=== PATIENT | male | born 1970 | race Caucasian/White ===

== ENCOUNTER 2016-11-30 21:38 | Emergency (ER) | payer OTHER ==
[~2016-11-30 21:38] MED LIST: CEPH500C3 PO; TRAM50 PO
[2016-11-30 21:40] VITALS: BP 116/77; PULSE 96; RESP 20; TEMP 97.9; O2SAT 98
[2016-11-30] MEDS ORDERED: LIDOCAINE 1%/EPINEPHrine 1:100,000 SOLN 20 ML VIAL INFIL ONE (22:00)
[2016-11-30] MEDS ORDERED: SODIUM CHLORIDE 0.9% FLUSH 10 ML FLUSH IV FLUSH PRN (22:00)
[2016-11-30] MEDS ORDERED: LORazepam 2 MG/ML VIAL IV PUSH ONE (22:00)
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
[2016-11-30] MEDS ORDERED: LIDOCAINE 1%/EPINEPHrine 1:100,000 SOLN 50 ML VIAL ONE (22:26)
--- NOTE | 2016-11-30 23:19 | PD ---
Data Data Last Documented VS Vital Signs Date Time Temp Pulse Resp B/P Pulse Ox O2 Delivery O2 Flow Rate FiO2 12/01/16 01:25 70 16 136/70 99 11/30/16 22:47 Room Air 11/30/16 21:40 97.9 Orders Basic Metabolic Panel (Bmp) (11/30/16 21:57) Complete Blood Count With Diff (11/30/16 21:57) Iv Access Insert/Monitor (11/30/16 21:57) Ecg Monitoring (11/30/16 21:57) Oximetry (11/30/16 21:57) Sodium Chloride 0.9% Flush (Ns Flush) (11/30/16 22:00) Alcohol (Ethanol) (11/30/16 21:57) Lorazepam Inj (Ativan Inj) (11/30/16 22:00) Ct Brain W/O Iv Contrast(Rout) (11/30/16 21:57) Lidocai-Epi 1%-1:100,000 Inj (Xylocaine- (11/30/16 22:00) Ct Cerv Spine W/O Contrast (11/30/16 22:11) Lidocai-Epi 1%-1:100,000 Inj (Xylocaine- (11/30/16 22:26) Olanzapine Inj (Zyprexa Inj) (11/30/16 23:30) Olanzapine Inj (Zyprexa Inj) (12/01/16 01:15) Labs Laboratory Tests Test 11/30/16 22:40 White Blood Count 11.8 TH/MM3 Red Blood Count 4.84 MIL/MM3 Hemoglobin 15.7 GM/DL Hematocrit 46.1 % Mean Corpuscular Volume 95.4 FL Mean Corpuscular Hemoglobin 32.4 PG Mean Corpuscular Hemoglobin 33.9 % Concent Red Cell Distribution Width 13.0 % Platelet Count 255 TH/MM3 Mean Platelet Volume 8.4 FL Neutrophils (%) (Auto) 53.3 % Lymphocytes (%) (Auto) 36.1 % Monocytes (%) (Auto) 7.8 % Eosinophils (%) (Auto) 2.1 % Basophils (%) (Auto) 0.7 % Neutrophils # (Auto) 6.3 TH/MM3 Lymphocytes # (Auto) 4.3 TH/MM3 Monocytes # (Auto) 0.9 TH/MM3 Eosinophils # (Auto) 0.2 TH/MM3 Basophils # (Auto) 0.1 TH/MM3 CBC Comment DIFF FINAL Differential Comment Sodium Level 144 MEQ/L Potassium Level 4.2 MEQ/L Chloride Level 108 MEQ/L Carbon Dioxide Level 26.7 MEQ/L Anion Gap 9 MEQ/L Blood Urea Nitrogen 9 MG/DL Creatinine 1.05 MG/DL Estimat Glomerular Filtration 76 ML/MIN Rate Random Glucose 73 MG/DL Calcium Level 8.5 MG/DL Ethyl Alcohol Level 287 MG/DL MDM Supervised Visit with ERICA: Yes Narrative Course I, Dr. Cummins, have reviewed the advance practice practitioner's documentation and am in agreement, met with the patient face to face, made the diagnosis, and the medical decision making was done by me. See her note for further details. Patient is extremely agitated and belligerent and is both a danger to himself and to staff. He was placed in 4 point restraints by ED security prior to being brought to an exam room. The patient was able to undo his restraints. His level of agitation increased. He was therefore given Zyprexa for chemical sedation as well so that he can be properly cared for. CT head: Unremarkable study except for mild chronic sinusitis. CT cervical spine: CONCLUSION: Slight neural foramina compromise left C6-C7 and small central disc protrusion C3-C4 compromising the anterior CSF space without any significant thecal sac stenosis. Patient has a left foot laceration that was repaired by my PA. See her note for further details. Patient is medically cleared and will be allowed to sleep off his intoxication in the emergency department. Diagnosis Primary Impression: Alcohol intoxication Qualified Code: F10.920 - Alcohol intoxication, uncomplicated Additional Impression: Laceration of left foot Qualified Code: S91.312A - Laceration of left foot, initial encounter Referrals: Primary Care Physician 3 days Additional Instruction: Keep wound clean and dry. Have sutures removed in 7 days. Disposition: 01 DISCHARGE HOME Condition: Stable Iglesia Cummins MD Nov 30, 2016 23:19
[2016-11-30 23:22] LABS: AUTOMATED NEUTROPHIL # 6.3 TH/MM3 (1.8-7.7); BASOPHIL # 0.1 TH/MM3 (0-0.2); BASOPHIL % 0.7 % (0.0-2.0); EOSINOPHIL # 0.2 TH/MM3 (0-0.4); EOSINOPHIL % 2.1 % (0.0-4.0); HEMATOCRIT 46.1 % (39.0-51.0); HEMO FLAGS DIFF FINAL; LYMPH % 36.1 % (9.0-44.0); LYMPHOCYTE # 4.3 TH/MM3 (1.0-4.8); MEAN CELL VOLUME 95.4 FL (80.0-100.0); MEAN CORPUSCULAR HEMOGLOBIN 32.4 PG (27.0-34.0); MEAN CORPUSCULAR HGB CONC 33.9 % (32.0-36.0); MONO % 7.8 % (0.0-8.0); NEUT % 53.3 % (16.0-70.0); PLATELET COUNT 255 TH/MM3 (150-450); RED BLOOD COUNT 4.84 MIL/MM3 (4.50-5.90); WHITE BLOOD COUNT 11.8 TH/MM3 (4.0-11.0)
[2016-11-30] MEDS ORDERED: OLANZapine IM 10 MG VIAL IM ONE (23:30)
[2016-11-30 23:39] LABS: BICARBONATE 26.7 MEQ/L (21.0-32.0); POTASSIUM 4.2 MEQ/L (3.5-5.1)
[2016-11-30 23:55] VITALS: BP 143/72; PULSE 68; RESP 18; O2SAT 100
[2016-12-01] MEDS ORDERED: OLANZapine IM 10 MG VIAL IM ONE (01:15)
[2016-12-01 01:25] VITALS: BP 136/70; PULSE 70; RESP 16; O2SAT 99
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
[2016-12-01 06:15] VITALS: BP 130/69; PULSE 72; RESP 16; O2SAT 100
== END 2016-12-01 14:10 | disposition home or self-care (01) ==
LOC: NEPE 21:38
DX: F10.920 Alcohol use, unspecified with intoxication, uncomplicated (principal); S09.90XA Unspecified injury of head, initial encounter; S91.312A Laceration without foreign body, left foot, initial encounter; Z72.0 Tobacco use; W19.XXXA Unspecified fall, initial encounter; Y93.89 Activity, other specified; Y92.239 Unspecified place in hospital as the place of occurrence of the external cause; Y99.8 Other external cause status
CPT/HCPCS: 12001; 70450; 72125; 80048; 80307; 85025; 96372